=== PATIENT | male | born 1945 | race African-American/Black ===

== ENCOUNTER 2021-08-15 15:22 | Emergency (ER) | payer OTHER ==
[~2021-08-15] VITALS: Ht 170.2 cm; Wt 91.0 kg
[~2021-08-15 15:22] MED LIST: AMLO5TAB4; ASPIRIN; CLOT10TR2; LISI10TA; PRAV10TA35
[2021-08-15 17:08] VITALS: BP 168/74
[2021-08-15 17:44] LABS: CHLORIDE 114 mEq/L (98-107)
[2021-08-15 17:45] LABS: HEMATOCRIT. 43.5 % (42.0-52.0); HEMOGLOBIN. 14.4 g/dL (14.0-18.0); MEAN CORPUSCULAR VOLUME 81.7 fL (80.0-94.0); MEAN PLATELET VOLUME 7.9 fl (7.4-10.4); PLATELET 193 x1000/uL (130-400); RED BLOOD CELL COUNT 5.33 mill/uL (4.7-6.1); RED CELL DISTRIBUTION WIDTH 15.3 % (11.6-14.6)
[2021-08-15 18:05] LABS: PLATELET ESTIMATE NORMAL
== END 2021-08-15 19:02 | disposition home or self-care (01) ==
LOC: ER 15:22
DX: E10.649 Type 1 diabetes mellitus with hypoglycemia without coma (principal); E78.00 Pure hypercholesterolemia, unspecified; I10 Essential (primary) hypertension; Z79.4 Long term (current) use of insulin; Z79.82 Long term (current) use of aspirin
CPT/HCPCS: 36415; 80053; 85025; 99283